=== PATIENT | male | born 1950 | race Caucasian/White ===

== ENCOUNTER → 2016-06-24 | Outpatient (CLI) | payer MEDICARE ==
[~2016-06-24] MED LIST: ASPI-621 PO; ASPI-650 PO; ATOR80TA75 PO; LISI5TAB7 PO; LOVA10TA PO; NICO1PAT5 TD; NITR0.4T SL; TICA90TA PO
== END | disposition home or self-care (01) ==
LOC: CFH 12:27
PROVIDERS: ATTEND Internal Medicine Cardiovascular Disease
DX: I25.10 Atherosclerotic heart disease of native coronary artery without angina pectoris (principal); I25.2 Old myocardial infarction; I10 Essential (primary) hypertension; F17.210 Nicotine dependence, cigarettes, uncomplicated
CPT/HCPCS: 93306

== ENCOUNTER → 2017-05-01 | Outpatient (CLI) | payer MEDICARE ==
[~2017-05-01] MED LIST changes: +ATOR-2 PO; -ATOR80TA75 PO; +NICO-487 TD; -NICO1PAT5 TD
[2017-05-01 12:40] LABS: CHLORIDE 107 mmol/L (98-107)
[2017-05-01 12:41] LABS: ALANINE AMINOTRANSFERASE 25 U/L (12-78); ALBUMIN 3.5 g/dL (3.4-5.0); ANION GAP 8 mmol/L (5-15); CALCIUM 8.3 mg/dL (8.5-10.1); CREATININE 1.04 mg/dL (0.7-1.3); TRIGLYCERIDES 72 mg/dL (50-200); VLDL CHOLESTEROL 14 mg/dL (0-25)
[2017-05-01 12:42] LABS: ALKALINE PHOSPHATASE 91 U/L (45-117); BILIRUBIN,TOTAL 0.4 mg/dL (0.2-1.0); CHOL/HDL RATIO 2.3; CHOLESTEROL, TOTAL 127 mg/dL (140-239); HDL CHOL % 43 % (26-37); HDL CHOLESTEROL (DIRECT) 55 mg/dL (40-60); LDL CHOLESTEROL,CALCULATED 58 mg/dL (54-169); LDL/HDL RATIO 1.1 (0.5-3.0); TOTAL PROTEIN 7.6 g/dL (6.4-8.2)
== END | disposition home or self-care (01) ==
LOC: CFH 07:43
PROVIDERS: ATTEND Internal Medicine Cardiovascular Disease
DX: E78.5 Hyperlipidemia, unspecified (principal)
CPT/HCPCS: 36415; 80053; 80061

== ENCOUNTER 2017-05-06 12:03 | Observation (INO) | payer MEDICARE ==
[~2017-05-06] VITALS: Ht 167.6 cm; Wt 71.1 kg
[2017-05-06] MEDS ORDERED: SODIUM CHLORIDE 0.9% 1,000ML IVBOLUS ONE (12:30)
[2017-05-06] MEDS ORDERED: ONDANSETRON 2MG/ML, 2ML IVPush ONE (12:30)
[2017-05-06] MEDS ORDERED: SODIUM CHLORIDE FLUSH 10ML SYR IVF ONE (12:30)
[2017-05-06] MEDS ORDERED: ONDANSETRON 2MG/ML, 2ML ONE (12:47)
[2017-05-06] MEDS ORDERED: MORPHINE SULFATE 4 MG/ML, 1ML ONE ×2 (12:48→14:34)
[2017-05-06 12:49] LABS: MEAN CORPUSCULAR HEMOGLOBIN 31.5 pg (27.5-34.5); MEAN CORPUSCULAR HGB CONC 33.3 g/dL (33.2-36.2); MEAN CORPUSCULAR VOLUME 94.8 fL (81-97); MEAN PLATELET VOLUME 7.2 fL (7.4-10.4); PLATELET COUNT 375 x10^3/uL (130-400); RED BLOOD COUNT 5.13 x10^6/uL (4.38-5.82); RED CELL DISTRIBUTION WIDTH 13.3 % (9.4-14.8)
[2017-05-06] MEDS: MORPHINE SULFATE 4 MG/ML, 1ML IVPush PRN ×2 (12:52→14:36)
[2017-05-06 12:56] LABS: ALANINE AMINOTRANSFERASE 29 U/L (12-78); ALBUMIN 3.5 g/dL (3.4-5.0); ANION GAP 8 mmol/L (5-15); CHLORIDE 105 mmol/L (98-107)
[2017-05-06 12:57] LABS: INTERNATIONAL NORMALIZED RATIO 1.04 (0.93-1.1); PROTHROMBIN TIME 10.7 Seconds (9.6-11.5)
[2017-05-06 12:59] LABS: ALKALINE PHOSPHATASE 92 U/L (45-117); BILIRUBIN,TOTAL 0.4 mg/dL (0.2-1.0); CREATININE 2.01 mg/dL (0.7-1.3); TOTAL PROTEIN 8.1 g/dL (6.4-8.2)
[2017-05-06] MEDS ORDERED: CLOP75TA PO (13:05)
[2017-05-06] MEDS ORDERED: IRBE150T25 PO (13:05)
[2017-05-06 13:51] LABS: BASOPHILS # (AUTO) 0.03 x10^3/uL (0-0.1); BASOPHILS % (AUTO) 0 % (0-1); EOSINOPHILS # (AUTO) 0.01 x10^3/uL (0-0.4); EOSINOPHILS % (AUTO) 0 % (1-7); LYMPHOCYTES # (AUTO) 1.66 x10^3/uL (1-3.4); LYMPHOCYTES % (AUTO) 8 % (22-44); MD SCAN; MONOCYTES # (AUTO) 1.13 x10^3/uL (0.2-0.8); MONOCYTES % (AUTO) 6 % (2-9); NEUTROPHILS % (AUTO) 86 % (42-75)
[2017-05-06] MEDS ORDERED: OMNIPAQUE 350 MG/ML, 100ML BOTTLE ONE (14:14)
[2017-05-06 14:52] LABS: MICROSCOPIC INDICATED
[2017-05-06 15:19] LABS: CULTURE INDICATED? NO
[2017-05-06] MEDS ORDERED: ONDANSETRON 2MG/ML, 2ML IVPush PRN (17:00)
[2017-05-06] MEDS ORDERED: ONDANSETRON ODT 4 MG PO PRN (17:00)
[2017-05-06] MEDS ORDERED: NITROGLYCERIN 0.4 MG BOTTLE (25 TABS) SL PRN ×2 (17:00)
[2017-05-06] MEDS ORDERED: NICOTINE 21 MG/24 HR PATCH.TD24 TD SCH (17:00)
[2017-05-06] MEDS ORDERED: OXYcodone IR 5MG TABLET PO PRN (17:00)
[2017-05-06] MEDS ORDERED: DOCUSATE 100 MG CAPSULE PO PRN (17:00)
[2017-05-06] MEDS ORDERED: PROMETHAZINE 25 MG/ML, 1ML IM PRN (17:00)
[2017-05-06] MEDS ORDERED: BISACODYL 10 MG SUPP PR PRN (17:00)
[2017-05-06] MEDS ORDERED: METOCLOPRAMIDE 5 MG/ML, 2ML IVPush PRN (17:00)
[2017-05-06] MEDS ORDERED: POLYETHYLENE GLYCOL 17 GM PACKET PO PRN (17:00)
[2017-05-06] MEDS ORDERED: GUAIFENESIN/DM 200-20MG, 10ML UDC PO PRN (17:00)
[2017-05-06] MEDS ORDERED: ACETAMINOPHEN 325 MG TABLET PO PRN (17:00)
[2017-05-06] MEDS ORDERED: morphine SULFATE 10 MG/ML, 1ML IVPush PRN (17:00)
[2017-05-06 17:56] VITALS: BP 134/79
[2017-05-06] MEDS: SODIUM CHLORIDE 0.9% 1,000 ML IV SCH (18:21)
[2017-05-06 18:49] VITALS: BP 132/71
[2017-05-06] MEDS ORDERED: IRBESARTAN 150 MG TABLET PO SCH (21:00)
[2017-05-06] MEDS ORDERED: ATORVASTATIN 80 MG TABLET PO SCH (21:00)
[2017-05-06] MEDS: LACTULOSE 10 GM/15 ML UDC PO SCH (21:12)
[2017-05-07 00:32] VITALS: BP 130/63
[2017-05-07] MEDS: SODIUM CHLORIDE 0.9% 1,000 ML IV SCH (04:33)
[2017-05-07 05:28] LABS: BASOPHILS # (AUTO) 0.05 x10^3/uL (0-0.1); BASOPHILS % (AUTO) 0 % (0-1); EOSINOPHILS # (AUTO) 0.25 x10^3/uL (0-0.4); EOSINOPHILS % (AUTO) 2 % (1-7); LYMPHOCYTES # (AUTO) 3.66 x10^3/uL (1-3.4); LYMPHOCYTES % (AUTO) 24 % (22-44); MD NO; MEAN CORPUSCULAR HEMOGLOBIN 31.9 pg (27.5-34.5); MEAN CORPUSCULAR HGB CONC 33.8 g/dL (33.2-36.2); MEAN CORPUSCULAR VOLUME 94.4 fL (81-97); MEAN PLATELET VOLUME 7.3 fL (7.4-10.4); MONOCYTES # (AUTO) 0.94 x10^3/uL (0.2-0.8); MONOCYTES % (AUTO) 6 % (2-9); NEUTROPHILS # (AUTO) 10.21 x10^3/uL (1.8-6.8); NEUTROPHILS % (AUTO) 68 % (42-75); PLATELET COUNT 376 x10^3/uL (130-400); RED BLOOD COUNT 4.33 x10^6/uL (4.38-5.82); RED CELL DISTRIBUTION WIDTH 13.6 % (9.4-14.8)
[2017-05-07 05:30] LABS: CHLORIDE 110 mmol/L (98-107)
[2017-05-07 05:44] LABS: ALANINE AMINOTRANSFERASE 26 U/L (12-78); ALBUMIN 2.8 g/dL (3.4-5.0); ALKALINE PHOSPHATASE 79 U/L (45-117); ANION GAP 7 mmol/L (5-15); BILIRUBIN,TOTAL 0.4 mg/dL (0.2-1.0); CALCIUM 8.2 mg/dL (8.5-10.1); CREATININE 1.07 mg/dL (0.7-1.3); TOTAL PROTEIN 6.8 g/dL (6.4-8.2)
[2017-05-07] MEDS ORDERED: ASPIRIN 81 MG TABLET EC PO SCH (06:00)
[2017-05-07 07:15] VITALS: BP 128/70
[2017-05-07] MEDS ORDERED: TRAM50TA2 PO (08:27)
[2017-05-07] MEDS ORDERED: AZIT500T2 PO (08:27)
[2017-05-07] MEDS ORDERED: AZITHROMYCIN 500 MG TABLET PO ONE (08:30)
[2017-05-07] MEDS ORDERED: CLOPIDOGREL 75 MG TABLET PO SCH (09:00)
[2017-05-07] MEDS ORDERED: SENNA/DOCUSATE TABLET PO SCH (09:00)
[2017-05-07] MEDS: LACTULOSE 10 GM/15 ML UDC PO SCH (09:00)
[2017-05-07] MEDS ORDERED: FLU VACC QS2017-18 (36MOS+) UP/PF 0.5 ML IM-VACC ONE (10:30)
== END 2017-05-07 11:21 | disposition home or self-care (01) ==
LOC: ED 13:11 → EDIP 14:52 → INTOOBSV 14:52 → 3NE 17:03
PROVIDERS: ADMIT Hospitalist; ATTEND Hospitalist
DX: S22.42XA Multiple fractures of ribs, left side, initial encounter for closed fracture (principal); M19.90 Unspecified osteoarthritis, unspecified site; I10 Essential (primary) hypertension; E78.5 Hyperlipidemia, unspecified; I25.2 Old myocardial infarction; J44.9 Chronic obstructive pulmonary disease, unspecified; R09.02 Hypoxemia; D72.829 Elevated white blood cell count, unspecified; N17.9 Acute kidney failure, unspecified; N40.0 Benign prostatic hyperplasia without lower urinary tract symptoms; F17.200 Nicotine dependence, unspecified, uncomplicated; V69.88XA Occupant (driver) (passenger) of heavy transport vehicle injured in other specified transport accidents, initial encounter; G89.29 Other chronic pain; Y93.89 Activity, other specified; Y92.89 Other specified places as the place of occurrence of the external cause; Y99.8 Other external cause status
CPT/HCPCS: 36415; 70450; 71260; 72125; 74177; 80053; 81001; 83735; 84100; 85025; 85610; 85730; 86850; 86900; 90471; 90686; 93005; 96361; 96374; 96375; 96376; 99285; G0378; J2405; J7030; Q9967

== ENCOUNTER → 2017-10-26 | Outpatient (CLI) | payer MEDICARE ==
[~2017-10-26] MED LIST changes: +AZIT500T2 PO; +CLOP75TA PO; +IRBE150T25 PO; +TRAM50TA2 PO
[2017-10-26 07:54] LABS: ALBUMIN 3.8 g/dL (3.4-5.0); ANION GAP 7 mmol/L (5-15); CALCIUM 8.2 mg/dL (8.5-10.1); CHLORIDE 108 mmol/L (98-107); CHOLESTEROL, TOTAL 139 mg/dL (140-239); CREATININE 0.95 mg/dL (0.7-1.3)
[2017-10-26 07:56] LABS: ALANINE AMINOTRANSFERASE 35 U/L (12-78); ALKALINE PHOSPHATASE 88 U/L (45-117); BILIRUBIN,TOTAL 0.4 mg/dL (0.2-1.0); CHOL/HDL RATIO 2.4; HDL CHOL % 42 % (26-37); HDL CHOLESTEROL (DIRECT) 59 mg/dL (40-60); LDL CHOLESTEROL,CALCULATED 69 mg/dL (54-169); LDL/HDL RATIO 1.2 (0.5-3.0); TOTAL PROTEIN 7.5 g/dL (6.4-8.2); TRIGLYCERIDES 55 mg/dL (50-200); VLDL CHOLESTEROL 11 mg/dL (0-25)
== END | disposition home or self-care (01) ==
LOC: LAB 07:18
PROVIDERS: ATTEND Internal Medicine Cardiovascular Disease
DX: E78.5 Hyperlipidemia, unspecified (principal); J44.9 Chronic obstructive pulmonary disease, unspecified; F17.200 Nicotine dependence, unspecified, uncomplicated; Z88.0 Allergy status to penicillin
CPT/HCPCS: 36415; 80053; 80061

== ENCOUNTER → 2018-05-28 | Outpatient (CLI) | payer MEDICARE ==
[~2018-05-28] MED LIST changes: -ASPI-621 PO; +ASPI81TA45 PO
[2018-05-28 12:45] LABS: ALBUMIN 3.7 g/dL (3.4-5.0); CALCIUM 8.5 mg/dL (8.5-10.1); CHLORIDE 108 mmol/L (98-107)
[2018-05-28 12:50] LABS: ALANINE AMINOTRANSFERASE 29 U/L (12-78); ALKALINE PHOSPHATASE 90 U/L (45-117); BILIRUBIN,TOTAL 0.4 mg/dL (0.2-1.0); CHOL/HDL RATIO 2.5; CHOLESTEROL, TOTAL 144 mg/dL (140-239); CREATININE 0.97 mg/dL (0.7-1.3); HDL CHOL % 40 % (26-37); HDL CHOLESTEROL (DIRECT) 58 mg/dL (40-60); LDL CHOLESTEROL,CALCULATED 74 mg/dL (54-169); LDL/HDL RATIO 1.3 (0.5-3.0); TOTAL PROTEIN 7.7 g/dL (6.4-8.2); TRIGLYCERIDES 58 mg/dL (50-200); VLDL CHOLESTEROL 12 mg/dL (0-25)
[2018-05-28 13:04] LABS: ANION GAP 4 mmol/L (5-15)
== END | disposition home or self-care (01) ==
LOC: CFH 07:23
PROVIDERS: ATTEND Internal Medicine Cardiovascular Disease
DX: E78.5 Hyperlipidemia, unspecified (principal)
CPT/HCPCS: 36415; 80053; 80061

== ENCOUNTER → 2019-09-04 | Outpatient (CLI) | payer MEDICARE ==
[~2019-09-04] MED LIST changes: -IRBE150T25 PO; +IRBE150T9 PO; -NITR0.4T SL; +NITR0.4T41 SL
[2019-09-04 12:57] LABS: CHLORIDE 109 mmol/L (98-107)
[2019-09-04 13:04] LABS: ALANINE AMINOTRANSFERASE 44 U/L (12-78); ALBUMIN 3.6 g/dL (3.4-5.0); ALKALINE PHOSPHATASE 118 U/L (45-117); ANION GAP 8 mmol/L (5-15); BILIRUBIN,TOTAL 0.6 mg/dL (0.2-1.0); CALCIUM 8.6 mg/dL (8.5-10.1); CHOL/HDL RATIO 2.9; CHOLESTEROL, TOTAL 166 mg/dL (140-239); CREATININE 1.03 mg/dL (0.7-1.3); HDL CHOL % 34 % (26-37); HDL CHOLESTEROL (DIRECT) 57 mg/dL (40-60); LDL CHOLESTEROL,CALCULATED 97 mg/dL (54-169); LDL/HDL RATIO 1.7 (0.5-3.0); TOTAL PROTEIN 7.8 g/dL (6.4-8.2); TRIGLYCERIDES 58 mg/dL (50-200); VLDL CHOLESTEROL 12 mg/dL (0-25)
== END | disposition home or self-care (01) ==
LOC: CFH 08:20
PROVIDERS: ATTEND Internal Medicine Cardiovascular Disease
DX: E78.5 Hyperlipidemia, unspecified (principal)
CPT/HCPCS: 36415; 80053; 80061

== ENCOUNTER 2019-10-24 08:35 | Inpatient (IN) | payer MEDICARE ==
[~2019-10-24] VITALS: Ht 167.6 cm; Wt 75.8 kg
--- NOTE | 2019-10-24 09:09 | NUR ---
[facility] PLACED IN ROOM, URINAL PROVIDED. PT INFORMED OF POC, INCLUDING ORDER FOR UA AND STOOL SPECIMEN. PT REPORTS OF "GOING" RIGHT BEFORE COMING TO ED, PT TO PUT [employer] LIGHT WHEN ABLE TO OBTAIN. CALL LIGHT WITHIN REACH, WARM BLANKET PROVIDED.
[2019-10-24 09:39] LABS: ALANINE AMINOTRANSFERASE 88 U/L (12-78); ALBUMIN 2.9 g/dL (3.4-5.0); ANION GAP 6 mmol/L (5-15); CALCIUM 8.9 mg/dL (8.5-10.1); CHLORIDE 109 mmol/L (98-107); CREATININE 0.97 mg/dL (0.7-1.3)
[2019-10-24 09:41] LABS: ALKALINE PHOSPHATASE 488 U/L (45-117); BILIRUBIN,TOTAL 5.3 mg/dL (0.2-1.0); TOTAL PROTEIN 7.7 g/dL (6.4-8.2)
--- NOTE | 2019-10-24 09:53 | NUR ---
URINE COLLECTED/SENT TO LAB.
[2019-10-24 10:00] LABS: MD YES; MEAN CORPUSCULAR HEMOGLOBIN 31.4 pg (27.5-34.5); MEAN CORPUSCULAR HGB CONC 33.2 g/dL (33.2-36.2); MEAN CORPUSCULAR VOLUME 94.9 fL (81-97); MEAN PLATELET VOLUME 8.7 fL (7.4-10.4); PLATELET COUNT 376 x10^3/uL (130-400); RED CELL DISTRIBUTION WIDTH 18.4 % (9.4-14.8)
[2019-10-24 10:02] LABS: BANDS%(MANUAL) 1 % (0-7); BASOS#(MANUAL) 0.21 x10^3/uL (0-0.1); BASOS% (MANUAL) 2 % (0-1); EOS#(MANUAL) 0.21 x10^3/uL (0.0-0.4); EOS% (MANUAL) 2 % (1-7); LYMPH#(MANUAL) 3.95 x10^3/uL (1-3.4); LYMPHS% (MANUAL) 38 % (22-44); MONOS#(MANUAL) 0.52 x10^3/uL (0.3-2.7); MONOS% (MANUAL) 5 % (2-9); SEG#(MANUAL) 5.41 x10^3/uL (1.8-6.8); SEGS% (MANUAL) 52 % (42-75)
[2019-10-24 10:03] LABS: TARGET CELLS 2+
[2019-10-24 10:06] LABS: <PLATELET ESTIMATE> ADEQUATE; <PLT MORPHOLOGY> NORMAL PLT MORPH; STOMATOCYTES 1+
[2019-10-24 10:06] LABS: MICROSCOPIC INDICATED
--- NOTE | 2019-10-24 10:18 | NUR ---
PT UNABLE TO PROVIDE STOOL SPECIMEN. ALL OTHER RESULTS BACK, PT FOR RECHECK.
[2019-10-24] MEDS ORDERED: SODIUM CHLORIDE FLUSH 10ML SYR IVF ONE (10:30)
--- NOTE | 2019-10-24 10:32 | NUR ---
ADD ON ORDER FOR IV AND CT ABD/PELVIS. PT RESTING QUIETLY, EYES CLOSED.
--- NOTE | 2019-10-24 11:09 | NUR ---
PT TO CT.
[2019-10-24] MEDS ORDERED: OMNIPAQUE 350 MG/ML, 100ML BOTTLE ONE (11:25)
--- NOTE | 2019-10-24 11:49 | NUR ---
CT RESULTS BACK, PT FOR RECHECK.
[2019-10-24] MEDS ORDERED: SODIUM CHLORIDE 0.9% 1,000 ML IV ONE (12:28)
[2019-10-24] MEDS ORDERED: SODIUM CHLORIDE 0.9% 1,000ML IVBOLUS ONE (12:30)
[2019-10-24] MEDS ORDERED: SODIUM CHLORIDE FLUSH 10ML SYR IVF PRN (12:30)
--- NOTE | 2019-10-24 12:40 | NUR ---
PT UPDATED ON POC. PT ASKING FOR MEAL. PT INFORMED TO STAY NPO UNTIL MRI RESULTS OR MD STATES OK TO EAT. PT UP TO [facility] TO PROVIDE STOOL SPECIMEN.
--- NOTE | 2019-10-24 13:13 | NUR ---
PT BACK FROM MRI, REPORT TO ELKE CHANDLER. GI IN TO SEE.
[2019-10-24] MEDS: LACTATED RINGERS 1,000 ML IV SCH ×2 (13:30→20:33)
[2019-10-24] MEDS ORDERED: POLYETHYLENE GLYCOL 17 GM PACKET PO PRN (13:30)
[2019-10-24] MEDS ORDERED: morphine SULFATE 10 MG/ML, 1ML IVPush PRN (13:30)
[2019-10-24] MEDS ORDERED: ONDANSETRON 2MG/ML, 2ML IVPush PRN (13:30)
[2019-10-24] MEDS ORDERED: MELATONIN 5 MG TABLET PO PRN (13:30)
[2019-10-24] MEDS ORDERED: NITROGLYCERIN 0.4 MG BOTTLE (25 TABS) SL PRN (13:30)
[2019-10-24] MEDS ORDERED: ONDANSETRON ODT 4 MG PO PRN (13:30)
[2019-10-24] MEDS ORDERED: ACETAMINOPHEN 325 MG TABLET PO PRN (13:30)
[2019-10-24] MEDS ORDERED: ENALAPRILAT 1.25 MG/ML, 2ML IVPush PRN (13:30)
[2019-10-24] MEDS ORDERED: TRAZODONE 50MG TABLET PO PRN (13:30)
--- NOTE | 2019-10-24 13:40 | NUR ---
PT GIVEN GIOVANY FLYNNDDING PER PT REQUEST. PT IS NPO AFTER MIDNIGHT PER DR. MUSA.
--- NOTE | 2019-10-24 14:00 | NUR ---
3 P'S ADDRESSED. PT DENIES PAIN.
--- NOTE | 2019-10-24 14:33 | NUR ---
ATTEMPTED TO COLLECT STOOL SAMPLE FOR C-DIFF BUT SAMPLE WAS FORMED. LAB WILL NOT TEST FOR C-DIFF WHEN STOOL IS FORMED.
[2019-10-24 15:48] VITALS: BP 145/66
[2019-10-24] MEDS: DIPHENHYDRAMINE 50 MG/ML, 1ML IVPush PRN (15:51)
[2019-10-24 16:00] VITALS: BP 145/66
[2019-10-24 19:20] VITALS: BP 124/60
[2019-10-24] MEDS: ATORVASTATIN 80 MG TABLET PO SCH (19:43)
[2019-10-24] MEDS: LOSARTAN 50MG TABLET PO SCH (19:43)
[2019-10-25 00:05] VITALS: BP 109/55
[2019-10-25] MEDS: DIPHENHYDRAMINE 50 MG/ML, 1ML IVPush PRN ×2 (01:11→17:56)
[2019-10-25 05:35] LABS: ALBUMIN 2.4 g/dL (3.4-5.0); ANION GAP 6 mmol/L (5-15); CALCIUM 8.1 mg/dL (8.5-10.1); CHLORIDE 112 mmol/L (98-107)
[2019-10-25 05:41] LABS: ALANINE AMINOTRANSFERASE 69 U/L (12-78); ALKALINE PHOSPHATASE 380 U/L (45-117); BILIRUBIN,TOTAL 3.9 mg/dL (0.2-1.0); CREATININE 0.81 mg/dL (0.7-1.3); TOTAL PROTEIN 6.6 g/dL (6.4-8.2)
[2019-10-25] MEDS ORDERED: CHLORHEXIDINE 15 ML UDC ONE (06:18)
[2019-10-25] MEDS: LACTATED RINGERS 1,000 ML IV SCH ×3 (07:00→21:23)
[2019-10-25] MEDS ORDERED: CHLORHEXIDINE 15 ML UDC MM ONE (07:00)
[2019-10-25] MEDS ORDERED: PROPOFOL 50 ML ONE (07:01)
[2019-10-25] MEDS ORDERED: FENTANYL PF 100 MCG/2ML ONE (07:01)
[2019-10-25] MEDS ORDERED: DIPHENHYDRAMINE 50 MG/ML, 1ML IVPush PRN (08:00)
[2019-10-25] MEDS ORDERED: morphine SULFATE 10 MG/ML, 1ML IVPush PRN (08:00)
[2019-10-25] MEDS ORDERED: OXYcodone 5 MG/5 ML ORAL.SOL UDC PO PRN (08:00)
[2019-10-25] MEDS ORDERED: PROMETHAZINE 25 MG/ML, 1ML IVPush PRN (08:00)
[2019-10-25] MEDS ORDERED: LABETALOL 5MG/ML, 20ML IV PRN (08:00)
[2019-10-25] MEDS ORDERED: FENTANYL PF 100 MCG/2ML IV PRN (08:00)
[2019-10-25] MEDS ORDERED: DIAZEPAM 5 MG/ML, 2ML IVPush PRN (08:00)
[2019-10-25] MEDS ORDERED: MEPERIDINE/PF 25MG/0.5ML IVPush PRN (08:00)
[2019-10-25] MEDS ORDERED: EPHEDRINE 50 MG/ML, 1ML IVPush PRN (08:00)
[2019-10-25] MEDS ORDERED: EPHEDRINE 50 MG/ML, 1ML IM PRN (08:00)
[2019-10-25] MEDS ORDERED: ONDANSETRON 2MG/ML, 2ML IVPush PRN (08:00)
[2019-10-25] MEDS ORDERED: INDOMETHACIN 50 MG SUPP.RECT ONE (08:14)
[2019-10-25] MEDS ORDERED: INDOMETHACIN 50 MG SUPP.RECT PR ONE (08:30)
[2019-10-25 09:32] VITALS: BP 132/70
[2019-10-25] MEDS ORDERED: SUCCINYLCHOLINE 20 MG/ML, 10ML ONE (10:37)
[2019-10-25] MEDS ORDERED: PROPOFOL 10 MG/ML, 20ML ONE (10:37)
[2019-10-25] MEDS ORDERED: ROCURONIUM 10MG/ML,5ML ONE (10:37)
[2019-10-25] MEDS ORDERED: ONDANSETRON 2MG/ML, 2ML ONE (10:37)
[2019-10-25] MEDS: PANTOPRAZOLE 40 MG IV IVPush SCH (11:03)
[2019-10-25] MEDS: SENNA/DOCUSATE TABLET PO SCH (11:03)
[2019-10-25] MEDS: NICOTINE 21 MG/24 HR PATCH.TD24 TD SCH (11:04)
[2019-10-25] MEDS ORDERED: SIMETHICONE DROPS 40 MG/0.6 ML BOTTLE ONE (11:21)
[2019-10-25] MEDS ORDERED: OMNIPAQUE 350 MG/ML, 50 ML BOTTLE ONE (12:00)
[2019-10-25 12:54] VITALS: BP 124/67
[2019-10-25] MEDS: LEVOFLOXACIN/PMX 750MG/150ML 150 ML IV SCH (17:19)
[2019-10-25 18:57] VITALS: BP 130/55
[2019-10-25] MEDS: ATORVASTATIN 80 MG TABLET PO SCH (20:03)
[2019-10-25] MEDS: LOSARTAN 50MG TABLET PO SCH (20:04)
[2019-10-26 00:53] VITALS: BP 117/52
[2019-10-26] MEDS: LACTATED RINGERS 1,000 ML IV SCH (03:38)
[2019-10-26 05:55] LABS: ALBUMIN 2.2 g/dL (3.4-5.0); ANION GAP 5 mmol/L (5-15); CHLORIDE 113 mmol/L (98-107)
[2019-10-26 06:00] LABS: ALANINE AMINOTRANSFERASE 69 U/L (12-78); ALKALINE PHOSPHATASE 322 U/L (45-117); CREATININE 0.78 mg/dL (0.7-1.3); TOTAL PROTEIN 6.3 g/dL (6.4-8.2)
[2019-10-26 07:54] VITALS: BP 114/64
[2019-10-26] MEDS: PANTOPRAZOLE 40 MG IV IVPush SCH (08:53)
[2019-10-26] MEDS: SENNA/DOCUSATE TABLET PO SCH (08:53)
[2019-10-26] MEDS: NICOTINE 21 MG/24 HR PATCH.TD24 TD SCH (08:54)
[2019-10-26 12:53] VITALS: BP 145/67
[2019-10-26] MEDS ORDERED: LEVO750T6 PO (15:14)
[2019-10-26] MEDS: LEVOFLOXACIN/PMX 750MG/150ML 150 ML IV SCH (15:50)
[2019-10-26] MEDS: DIPHENHYDRAMINE 50 MG/ML, 1ML IVPush PRN (16:57)
== END 2019-10-26 18:40 | disposition home or self-care (01) | DRG 444 ==
LOC: ED 09:21 → EDIP 12:28 → SUATTDRO 13:14 → 3N 15:22
PROVIDERS: ADMIT Internal Medicine; ATTEND Hospitalist
PROC: BF141ZZ Fluoroscopy of Gallbladder, Bile Ducts and Pancreatic Ducts using Low Osmolar Contrast (ICD-10-PCS; 2019-10-25)
PROC: 0FBC8ZX Excision of Ampulla of Vater, Via Natural or Artificial Opening Endoscopic, Diagnostic (ICD-10-PCS; 2019-10-25)
PROC: 0FC98ZZ Extirpation of Matter from Common Bile Duct, Via Natural or Artificial Opening Endoscopic (ICD-10-PCS; 2019-10-25)
PROC: 0F798DZ Dilation of Common Bile Duct with Intraluminal Device, Via Natural or Artificial Opening Endoscopic (ICD-10-PCS; principal; 2019-10-25 07:00)
DX: K83.1 Obstruction of bile duct (principal); K85.10 Biliary acute pancreatitis without necrosis or infection; J18.9 Pneumonia, unspecified organism; K63.89 Other specified diseases of intestine; I73.9 Peripheral vascular disease, unspecified; G40.909 Epilepsy, unspecified, not intractable, without status epilepticus; J44.9 Chronic obstructive pulmonary disease, unspecified; I25.10 Atherosclerotic heart disease of native coronary artery without angina pectoris; F17.210 Nicotine dependence, cigarettes, uncomplicated; G89.29 Other chronic pain; M54.9 Dorsalgia, unspecified; M19.90 Unspecified osteoarthritis, unspecified site; L29.9 Pruritus, unspecified; K21.9 Gastro-esophageal reflux disease without esophagitis; Z88.0 Allergy status to penicillin; Z95.5 Presence of coronary angioplasty implant and graft; I25.2 Old myocardial infarction; Z80.8 Family history of malignant neoplasm of other organs or systems; Z86.73 Personal history of transient ischemic attack (TIA), and cerebral infarction without residual deficits; Z90.49 Acquired absence of other specified parts of digestive tract; K26.9 Duodenal ulcer, unspecified as acute or chronic, without hemorrhage or perforation
CPT/HCPCS: 36415; 71250; 74177; 74181; 74328; 80053; 81001; 82378; 83690; 85025; 86301; 87635; 88305; 89055; 96360; 99285; G0378; J1956; J2405; J2704; J3010; Q9967; C1769; C1894; C2625; C9113; J0330; J1200; J7030; J7120

== ENCOUNTER → 2019-12-20 | Outpatient (CLI) | payer MEDICARE ==
[~2019-12-20] MED LIST changes: +LEVO750T6 PO
== END | disposition home or self-care (01) ==
LOC: WOUND 09:31
PROVIDERS: ATTEND Family Medicine
DX: T81.31XA Disruption of external operation (surgical) wound, not elsewhere classified, initial encounter (principal); I10 Essential (primary) hypertension; I25.118 Atherosclerotic heart disease of native coronary artery with other forms of angina pectoris; J44.9 Chronic obstructive pulmonary disease, unspecified; K21.9 Gastro-esophageal reflux disease without esophagitis; I25.2 Old myocardial infarction; G89.29 Other chronic pain; I73.9 Peripheral vascular disease, unspecified; M19.90 Unspecified osteoarthritis, unspecified site; G40.909 Epilepsy, unspecified, not intractable, without status epilepticus; F17.210 Nicotine dependence, cigarettes, uncomplicated; Z86.73 Personal history of transient ischemic attack (TIA), and cerebral infarction without residual deficits; Z95.5 Presence of coronary angioplasty implant and graft; Z90.49 Acquired absence of other specified parts of digestive tract; Z88.0 Allergy status to penicillin; Z79.82 Long term (current) use of aspirin; Y83.8 Other surgical procedures as the cause of abnormal reaction of the patient, or of later complication, without mention of misadventure at the time of the procedure; Y92.238 Other place in hospital as the place of occurrence of the external cause
CPT/HCPCS: 97597; G0463

== ENCOUNTER → 2020-02-20 | Outpatient (CLI) | payer MEDICARE ==
[~2020-02-20] MED LIST changes: -NICO-487 TD; +NICO-587 TD; +OMNIPAQUE 350 MG/ML, 100ML BOTTLE ONE
[2020-02-20 12:21] LABS: CALCIUM 8.4 mg/dL (8.5-10.1); CHLORIDE 107 mmol/L (98-107)
[2020-02-20 12:28] LABS: ALANINE AMINOTRANSFERASE 24 U/L (12-78); ALBUMIN 3.1 g/dL (3.4-5.0); ALKALINE PHOSPHATASE 111 U/L (45-117); ANION GAP 2 mmol/L (5-15); BILIRUBIN,TOTAL 0.2 mg/dL (0.2-1.0); TOTAL PROTEIN 7.2 g/dL (6.4-8.2)
== END | disposition home or self-care (01) ==
LOC: RAD 11:55
PROVIDERS: ATTEND Internal Medicine Hematology & Oncology
DX: C24.1 Malignant neoplasm of ampulla of Vater (principal); I25.10 Atherosclerotic heart disease of native coronary artery without angina pectoris; Z90.49 Acquired absence of other specified parts of digestive tract
CPT/HCPCS: 36415; 71260; 74177; 80053; Q9967

== ENCOUNTER → 2020-05-08 | Outpatient (CLI) | payer MEDICARE, MEDICAID ==
[~2020-05-08] MED LIST changes: -ASPI-650 PO; +ASPI325T20 PO; -OMNIPAQUE 350 MG/ML, 100ML BOTTLE ONE
== END | disposition home or self-care (01) ==
LOC: RAD 14:32
PROVIDERS: ATTEND Internal Medicine Hematology & Oncology
DX: C24.1 Malignant neoplasm of ampulla of Vater (principal); R22.42 Localized swelling, mass and lump, left lower limb